=== PATIENT | male | born 1995 | race Two or more races ===

== ENCOUNTER 2018-12-13 23:06 | Emergency (ER) | payer SELFPAY ==
[~2018-12-13] VITALS: Ht 172.7 cm; Wt 65.8 kg
[2018-12-13 23:22] VITALS: BP 109/65
[2018-12-13] MEDS ORDERED: AMOX875T PO (23:28)
[2018-12-13] MEDS ORDERED: IBUP800T19 PO (23:28)
[2018-12-13] MEDS ORDERED: KETOROLAC 60 MG/2 ML VIAL. IM ONE (23:45)
--- NOTE | 2018-12-13 23:47 | PHYS DOC ---
Past History Past Medical History: Other Additional Past Medical Histor: HYPOKALEMIA, "I HAVE SOME KIND OF HEART PROBLEM" Past Surgical History: No Surgical History Alcohol Use: None Drug Use: None Adult General Chief Complaint Chief Complaint: DENTAL PROBLEM HPI HPI Patient is a 23-year-old male presenting with toothache the wisdom tooth is coming in impacting the other tooth left lower molar area onset 6 months ago worse today is planning to see a dentist as soon as possible no fever Review of Systems Review of Systems Constitutional: Denies fever or chills [] Eyes: Denies change in visual acuity, redness, or eye pain [] HENT: Denies nasal congestion or sore throat [] Resp Current Medications Current Medications Current Medications Medications (Trade) Dose Ordered Sig/Mateus Start Time Stop Time Status Last Admin Dose Admin Ketorolac Tromethamine (Toradol Im) 60 mg 1X ONCE 12/13/18 23:45 12/13/18 23:46 12/13/18 23:30 60 MG Allergies Allergies Allergies Coded Allergies Type Severity Reaction Last Updated Verified No Known Drug Allergies 12/13/18 No Physical Exam Physical Exam Constitutional: Well developed, well nourished, no acute distress, non-toxic appearance. [] HENT: Normocephalic, atraumatic, bilateral external ears normal, oropharynx im pacted wisdom tooth left lower molar area with no signs of fluctuance or facial swelling Eyes: PERRLA, EOMI, conjunctiva normal, no discharge. [] Pulmonary: Normal respiratory effort no increased work of breathing no obvious chest wall trauma Abdomen: Bowel sounds normal, soft, no tenderness, no masses, no pulsatile kenan s. [] Skin: Warm, dry, no erythema, no rash. [] Extremities: No tenderness, no cyanosis, no clubbing, ROM intact, no edema. [] Neurologic: Alert and oriented X 3, normal motor function, normal sensory function, no focal deficits noted. [] Psychologic: Affect normal, judgement normal, mood normal. [] Current Patient Data Vital Signs Vital Signs Date Time Temp Pulse Resp B/P (MAP) Pulse Ox O2 Delivery O2 Flow Rate FiO2 12/13/18 23:22 98.5 70 18 98 Room Air EKG EKG [] Radiology/Procedures Radiology/Procedures [] Course & Med Decision Making Course & Med Decision Making Pertinent Labs and Imaging studies reviewed. (See chart for details) 23-year-old male with some tooth pain amoxicillin was given case of subclinical infection as well as anti-inflammatory medication follow-up with dentist as soon as possible Christina Disclaimer Christina Disclaimer This electronic medical record was generated, in whole or in part, using a voice recognition dictation system. Departure Departure: Impression: Primary Impression: Toothache Disposition: HOME, SELF-CARE Condition: STABLE Patient Instructions: Toothache-Brief Scripts Amoxicillin (AMOXICILLIN) 875 Mg Tablet 1 TAB PO BID for TOOTH, #14 TAB Prov: BRET BANDA MD 12/13/18 Ibuprofen (IBUPROFEN) 800 Mg Tablet 1 TAB PO TID PRN for PAIN, #30 TAB 0 Refills Prov: BRET BANDA MD 12/13/18 BRET BANDA MD Dec 13, 2018 23:47
[2018-12-14] MEDS ORDERED: PRED50TA PO (02:28)
[2018-12-14] MEDS ORDERED: HYDR-3165 PO (02:28)
== END 2018-12-13 23:40 | disposition home or self-care (01) ==
LOC: ER 23:06
DX: K08.89 Other specified disorders of teeth and supporting structures (principal)
CPT/HCPCS: 96372; 99283; J1885

== ENCOUNTER 2018-12-14 01:30 | Emergency (ER) | payer SELFPAY ==
[~2018-12-14] VITALS: Ht 172.7 cm; Wt 65.8 kg
[~2018-12-14 01:30] MED LIST: AMOX875T PO; IBUP800T19 PO
[2018-12-14] MEDS ORDERED: diphenhydrAMINE HCL 25 MG CAPSULE PO ONE (02:00)
[2018-12-14] MEDS ORDERED: predniSONE 10 MG TABLET PO ONE (02:00)
--- NOTE | 2018-12-14 02:06 | PHYS DOC ---
Past History Past Medical History: Other Additional Past Medical Histor: HYPOKALEMIA, "I HAVE SOME KIND OF HEART PROBLEM" Past Surgical History: No Surgical History Alcohol Use: None Drug Use: None Adult General Chief Complaint Chief Complaint: SHORTNESS OF BREATH HPI HPI Patient is a 23-year-old male just saw him a couple hours ago in the emergency room received Toradol for dental pain. Cut home began to feel short of breath felt like he really couldn't get enough air for like his heart was pounding so came back to the emergency room for evaluation no prior history of allergic disease no vomiting Review of Systems Review of Systems Constitutional: Denies fever or chills [] Eyes: Denies change in visual acuity, redness, or eye pain [] HENT: Respiratory: GI: Denies abdominal pain, nausea, vomiting, bloody stools or diarrhea [] : Denies dysuria or hematuria [] Neurologic: Denies headache, focal weakness or sensory changes [] Endocrine: Denies polyuria or polydipsia [] All other systems were reviewed and found to be within normal limits, except as documented in this note. Current Medications Current Medications Current Medications Medications (Trade) Dose Ordered Sig/Mateus Start Time Stop Time Status Last Admin Dose Admin Diphenhydramine HCl (Benadryl) 50 mg 1X ONCE 12/14/18 02:00 12/14/18 02:01 DC 12/14/18 01:47 50 MG Prednisone (Prednisone) 50 mg 1X ONCE 12/14/18 02:00 12/14/18 02:01 DC 12/14/18 01:47 50 MG Allergies Allergies Allergies Coded Allergies Type Severity Reaction Last Updated Verified No Known Drug Allergies 12/13/18 No Physical Exam Physical Exam Constitutional: Well developed, well nourished, no acute distress, non-toxic appearance. [] HENT: Normocephalic, atraumatic, bilateral external ears normal, oropharynx moist, no oral exudates, nose normal. [] Eyes: PERRLA, EOMI, conjunctiva normal, no discharge. [] Neck: Normal range of motion, no tenderness, supple, no stridor. [] Cardiovascular:Heart rate regular rhythm, no murmur []tachycardia but otherwise no murmurs Lungs & Thorax: Bilateral breath sounds clear to auscultation []mild tachypnea but lungs sound essentially clear the oropharynx is normal there is no swelling no stigmata of allergic reaction no urticaria Abdomen: Bowel sounds normal, soft, no tenderness, no masses, no pulsatile masses. [] Skin: Warm, dry, no erythema, no rash. [] Back: No tenderness, no CVA tenderness. [] Extremities: No tenderness, no cyanosis, no clubbing, ROM intact, no edema. [] Neurologic: Alert and oriented X 3, normal motor function, normal sensory function, no focal deficits noted. [] Psychologic: Affect normal, judgement normal, mood normal. [] Current Patient Data Vital Signs Vital Signs Date Time Temp Pulse Resp B/P (MAP) Pulse Ox O2 Delivery O2 Flow Rate FiO2 12/14/18 01:38 98.0 96 20 98 Room Air EKG EKG [] Radiology/Procedures Radiology/Procedures [] Impressions: PT PRESENTS TO ER VIA POV WITH C/O SOA AFTER RECEIVING TORADOL INJECTION EARLIER THIS EVENING. PT WAS SEEN EARLIER THIS EVENING AT [facility] ER FOR DENTAL PAIN AND RECEIVED A TORADOL INJECTION FOR PAIN. UPON DISCHARGE, PT HAD NO COMPLAINTS OF REACTION. PT RETURNED 2 HOURS AFTER INJECTION C/O SOA. Distress * Mild Temperature (Fahrenheit): * 98.0 degrees F (97.6-99.5) Patient Temperature * 98.0 degrees F (97.5-99.5) Temperature Source * Oral Blood Pressure Systolic * 110 mm Hg (100-140) Blood Pressure Diastolic * 59 mm Hg (60-100) L Blood Pressure Mean * 76 mm Hg Blood Pressure Location * Right Arm Blood Pressure Source * Automatic Cuff Pulse Rate * 96 beats per minute (60-90) H Pulse Assessment Method * Monitor Respiratory Rate * 20 breaths per minute (12-24) Oxygen Delivery Method * Room Air Course & Med Decision Making Course & Med Decision Making Pertinent Labs and Imaging studies reviewed. (See chart for details) []Patient may have had a mild to moderate allergic reaction to Toradol no signs of any swelling or hives however subjective shortness of breath with some mild tachycardia and anxiety is also possible chest x-ray clear after Benadryl and prednisone. Of observation the tachycardia resolved completely patient was breathing comfortably blood pressure noted to be normal in the emergency room patient was given prescription for prednisone and advised to not take Motrin may have allergy to Toradol given [place] as needed for pain for his tooth. Dragon Disclaimer Dragon Disclaimer This electronic medical record was generated, in whole or in part, using a voice recognition dictation system. Departure Departure: Impression: Primary Impression: Allergic reaction Disposition: 01 HOME, SELF-CARE Condition: STABLE Referrals: PCP,BLANCA (PCP) Scripts Prednisone (PREDNISONE) 50 Mg Tablet 1 TAB PO DAILY for allergic reaction, #5 TAB Prov: BRET BANDA MD 12/14/18 Hydrocodone Bit/Acetaminophen (NORCO 5-325 TABLET) 1 Each Tablet 1-2 TAB PO Q4-6HRS PRN for PAIN, #10 TAB Prov: BRET BANDA MD 12/14/18 BRET BANDA MD Dec 14, 2018 02:06
[2018-12-14] MEDS ORDERED: PRED50TA PO (02:28)
[2018-12-14] MEDS ORDERED: HYDR-3165 PO (02:28)
[2018-12-14 02:30] VITALS: BP 102/46
--- NOTE | 2018-12-14 03:03 | RAD ---
EXAM: CHEST 1 VIEW History: Shortness of breath COMPARISON: None available. TECHNIQUE: Single portable radiograph of the chest FINDINGS: The cardiac silhouette is unremarkable. The lungs are clear bilaterally. The costophrenic sulci are clear and well demarcated. IMPRESSION: No radiographic evidence of an acute cardiopulmonary process. Electronically signed by: Ramon Montoya MD (12/14/2018 3:00 AM) [facility]
== END 2018-12-14 02:35 | disposition home or self-care (01) ==
LOC: ER 01:30
DX: R06.02 Shortness of breath (principal); T39.8X5A Adverse effect of other nonopioid analgesics and antipyretics, not elsewhere classified, initial encounter; Y92.89 Other specified places as the place of occurrence of the external cause
CPT/HCPCS: 71045; 99283; J7512; Q0163

== ENCOUNTER 2018-12-14 23:58 | Emergency (ER) | payer SELFPAY ==
[~2018-12-14] VITALS: Ht 172.7 cm; Wt 65.8 kg
[~2018-12-14 23:58] MED LIST changes: +HYDR-3165 PO; +PRED50TA PO
[2018-12-15 00:30] VITALS: BP 106/69
[2018-12-15] MEDS ORDERED: HYDROcodone/APAP 5/325MG 1 TAB TABLET PO ONE (00:30)
[2018-12-15] MEDS ORDERED: AMOXICILLIN 250 MG CAPSULE PO ONE (00:30)
--- NOTE | 2018-12-15 00:48 | PHYS DOC ---
Past History Past Medical History: Other Additional Past Medical Histor: HYPOKALEMIA, "I HAVE SOME KIND OF HEART PROBLEM" Past Surgical History: No Surgical History Alcohol Use: None Drug Use: Marijuana Adult General Chief Complaint Chief Complaint: DENTAL PROBLEM HPI HPI Patient is a [23-year-old male with an impacted wisdom tooth left lower molar some twice last night given Toradol he came back with shortness of breath and mild tachycardia allergic reaction was on the differential but he had no urticaria we treated him he was improved he was sent home he said that the medications that he was prescribed last night amoxicillin and pain control were too expensive so he has not filled any of the medications and he feels like his tooth is getting more swollen and more painful he is worried that his airways going to shut down. No fever Current Medications Current Medications Current Medications Medications (Trade) Dose Ordered Sig/Mateus Start Time Stop Time Status Last Admin Dose Admin Acetaminophen/ Hydrocodone Bitart (Lortab 5/325) 2 tab 1X ONCE 12/15/18 00:30 12/15/18 00:31 DC 12/15/18 00:22 2 TAB Amoxicillin (Amoxil) 500 mg 1X ONCE 12/15/18 00:30 12/15/18 00:31 DC 12/15/18 00:22 500 MG Allergies Allergies Allergies Coded Allergies Type Severity Reaction Last Updated Verified ketorolac Allergy Intermediate 12/14/18 Yes Physical Exam Physical Exam Constitutional: Well developed, well nourished, no acute distress, non-toxic appearance. [] HENT: Normocephalic, atraumatic, bilateral external ears normal, left lower molar impacted wisdom tooth noted there is mild swelling around the gum no appreciable drainable abscess at this time no facial swelling there is trace lymphadenopathy on the left no sublingual swelling Eyes: PERRLA, EOMI, conjunctiva normal, no discharge. [] Neck: Normal range of motion, no tenderness, supple, no stridor. [] Cardiovascular:Heart rate regular rhythm, no murmur [] Lungs & Thorax: Bilateral breath sounds clear to auscultation [] Abdomen: Bowel sounds normal, soft, no tenderness, no masses, no pulsatile masses. [] Skin: Warm, dry, no erythema, no rash. [] Extremities: No tenderness, no cyanosis, no clubbing, ROM intact, no edema. [] Neurologic: Alert and oriented X 3, normal motor function, normal sensory function, no focal deficits noted. [] Psychologic: Anxiety noted Current Patient Data Vital Signs Vital Signs Date Time Temp Pulse Resp B/P (MAP) Pulse Ox O2 Delivery O2 Flow Rate FiO2 12/15/18 00:30 97.9 83 18 97 Room Air Lab Results ss * None Temperature (Fahrenheit): * 97.9 degrees F (97.6-99.5) Patient Temperature * 97.9 degrees F (97.5-99.5) Temperature Source * Oral Blood Pressure Systolic * 106 mm Hg (100-140) Blood Pressure Diastolic * 69 mm Hg (60-100) Blood Pressure Mean * 81 mm Hg Blood Pressure Location * Right Arm Blood Pressure Source * Automatic Cuff Pulse Rate * 83 beats per minute (60-90) Pulse Assessment Method * Monitor Respiratory Rate * 18 breaths per minute (12-24) Oxygen Delivery Method * Room Air Bedside Pulse Oximetry * 97 % EKG EKG [] Radiology/Procedures Radiology/Procedures [] Course & Med Decision Making Course & Med Decision Making Pertinent Labs and Imaging studies reviewed. (See chart for details) []I gave him a good Rx coupon I spoke with one of our staff members were actually works at a local pharmacy and counseled him on were to go to get the most affordable medications I recommended that he take the amoxicillin for sure and that should be pretty cheap also feel even half the prescription for [place] to give him some pain relief he does not have to take the prednisone probably there are no stigmata of allergic reaction tonight on my reevaluation of the patient. Recommended follow-up with dentist this week as soon as possible Christina Disclaimer Dragon Disclaimer This electronic medical record was generated, in whole or in part, using a voice recognition dictation system. Departure Departure: Impression: Primary Impression: Pain, dental Disposition: HOME, SELF-CARE Condition: STABLE Patient Instructions: Toothache-Brief BRET BANDA MD Dec 15, 2018 00:48
== END 2018-12-15 00:20 | disposition home or self-care (01) ==
LOC: ER 23:58
DX: K08.89 Other specified disorders of teeth and supporting structures (principal); Z88.8 Allergy status to other drugs, medicaments and biological substances
CPT/HCPCS: 99283

== ENCOUNTER 2018-12-29 05:46 | Emergency (ER) | payer SELFPAY ==
[~2018-12-29] VITALS: Ht 172.7 cm; Wt 66.5 kg
--- NOTE | 2018-12-29 05:49 | ED.ADGEN ---
Past History Past Medical History: Other Additional Past Medical Histor: HYPOKALEMIA, "I HAVE SOME KIND OF HEART PROBLEM" (JUSTA SIM MD) Past Surgical History: No Surgical History (JUSTA SIM MD) Alcohol Use: None Drug Use: Marijuana (JUSTA SIM MD) Adult General HPI HPI Patient is a 23 year old male who presents with above hx and complaints of pharyngitis. (JUSTA SIM MD) Review of Systems Review of Systems Constitutional: Denies fever or chills [] Eyes: Denies change in visual acuity, redness, or eye pain [] HENT: Denies nasal congestion or sore throat [] Respiratory: Denies cough or shortness of breath [] Cardiovascular: No additional information not addressed in HPI [] GI: Denies abdominal pain, nausea, vomiting, bloody stools or diarrhea [] : Denies dysuria or hematuria [] Musculoskeletal: Denies back pain or joint pain [] Integument: Denies rash or skin lesions [] Neurologic: Denies headache, focal weakness or sensory changes [] Endocrine: Denies polyuria or polydipsia [] All other systems were reviewed and found to be within normal limits, except as documented in this note. (JUSTA SIM MD) Current Medications Current Medications Current Medications Medications (Trade) Dose Ordered Sig/Mateus Start Time Stop Time Status Last Admin Dose Admin Acetaminophen (Tylenol) 500 mg 1X ONCE 12/29/18 07:00 12/29/18 07:01 DC 12/29/18 06:37 500 MG Dexamethasone (Decadron) 10 mg 1X ONCE 12/29/18 06:45 12/29/18 06:46 DC 12/29/18 06:31 10 MG Prednisone (Prednisone) 50 mg 1X ONCE 12/29/18 06:15 12/29/18 06:15 DC (MELISSA BAH DO) Allergies Allergies Allergies Coded Allergies Type Severity Reaction Last Updated Verified ketorolac Allergy Intermediate 12/29/18 Yes (MELISSA BAH DO) Physical Exam Physical Exam Constitutional: Well developed, well nourished, no acute distress, non-toxic appearance. [] HENT: Normocephalic, atraumatic, bilateral external ears normal, oropharynx moist, no oral exudates, nose normal. [] Eyes: PERRLA, EOMI, conjunctiva normal, no discharge. [] Neck: Normal range of motion, no tenderness, supple, no stridor. [] Cardiovascular:Heart rate regular rhythm, no murmur [] Lungs & Thorax: Bilateral breath sounds clear to auscultation [] Abdomen: Bowel sounds normal, soft, no tenderness, no masses, no pulsatile masses. [] Skin: Warm, dry, no erythema, no rash. [] Back: No tenderness, no CVA tenderness. [] Extremities: No tenderness, no cyanosis, no clubbing, ROM intact, no edema. [] Neurologic: Alert and oriented X 3, normal motor function, normal sensory function, no focal deficits noted. [] Psychologic: Affect normal, judgement normal, mood normal. [] (JUSTA SIM MD) Current Patient Data Vital Signs Vital Signs Date Time Temp Pulse Resp B/P (MAP) Pulse Ox O2 Delivery O2 Flow Rate FiO2 12/29/18 05:50 97.9 90 20 107/49 (68) 98 Room Air (MELISSA BAH DO) Lab Results Laboratory Tests Test 12/29/18 06:38 Group A Streptococcus Rapid Negative (NEGATIVE) (MELISSA BAH DO) EKG EKG [] (JUSTA SIM MD) Radiology/Procedures Radiology/Procedures [] (JUSTA SIM MD) Course & Med Decision Making Course & Med Decision Making Pertinent Labs and Imaging studies reviewed. (See chart for details) [] (JUSTA SIM MD) Final Impression Final Impression [] (JUSTA SIM MD) Dragon Disclaimer Dragon Disclaimer This electronic medical record was generated, in whole or in part, using a voice recognition dictation system. (JUSTA SIM MD) JUSTA SIM MD Dec 29, 2018 05:49 MELISSA BAH DO Dec 29, 2018 07:05
[2018-12-29 06:00] VITALS: BP 107/49
[2018-12-29] MEDS ORDERED: predniSONE 10 MG TABLET PO ONE (06:15)
[2018-12-29] MEDS ORDERED: DEXAMETHASONE 4 MG TABLET PO ONE (06:45)
[2018-12-29] MEDS ORDERED: ACETAMINOPHEN 500 MG TABLET PO ONE (07:00)
[2018-12-29] MEDS ORDERED: PRED20TA PO (07:07)
--- NOTE | 2018-12-29 07:10 | PHYS DOC ---
Past History Past Medical History: Other Additional Past Medical Histor: HYPOKALEMIA, "I HAVE SOME KIND OF HEART PROBLEM" Past Surgical History: No Surgical History Smoking: Non-smoker Alcohol Use: None Drug Use: Marijuana Adult General Chief Complaint Chief Complaint: SORE THROAT HPI HPI 23-year-old male presents with 2 day history of sore throat. Reports pain with swallowing. Denies fever or chills. Denies known trauma. Patient reports daughter with URI type symptoms including fever. Review of Systems Review of Systems Constitutional: Denies fever or chills Eyes: Denies redness or eye pain HENT: Denies nasal congestion; reports sore throat Respiratory: Denies cough or shortness of breath Cardiovascular: Denies chest pain or palpitations GI: Denies abdominal pain, nausea, or vomiting : Denies dysuria or hematuria Musculoskeletal: Denies back pain or joint pain Integument: Denies rash or skin lesions Neurologic: Denies headache, focal weakness or sensory changes Complete systems were reviewed and found to be within normal limits, except as documented in this note. Current Medications Current Medications Current Medications Medications (Trade) Dose Ordered Sig/Mateus Start Time Stop Time Status Last Admin Dose Admin Acetaminophen (Tylenol) 500 mg 1X ONCE 12/29/18 07:00 12/29/18 07:01 DC 12/29/18 06:37 500 MG Dexamethasone (Decadron) 10 mg 1X ONCE 12/29/18 06:45 12/29/18 06:46 DC 12/29/18 06:31 10 MG Prednisone (Prednisone) 50 mg 1X ONCE 12/29/18 06:15 12/29/18 06:15 DC Allergies Allergies Allergies Coded Allergies Type Severity Reaction Last Updated Verified ketorolac Allergy Intermediate 12/29/18 Yes Physical Exam Physical Exam Constitutional: Well developed, well nourished, no acute distress, non-toxic appearance HENT: Normocephalic, atraumatic, oropharynx moist, pharyngeal erythema noted, TMs clear Eyes: Conjunctiva normal, no discharge Neck: Normal range of motion, no tenderness, supple Cardiovascular: Heart rate normal, regular rhythm Lungs & Thorax: Bilateral breath sounds clear to auscultation, no wheezing Skin: Warm, dry, no erythema, no rash Extremities: No tenderness, ROM intact, no edema Neurologic: Alert and oriented X 3, no focal deficits noted Psychologic: Affect normal, judgement normal Current Patient Data Vital Signs Vital Signs Date Time Temp Pulse Resp B/P (MAP) Pulse Ox O2 Delivery O2 Flow Rate FiO2 12/29/18 05:50 97.9 90 20 107/49 (68) 98 Room Air Lab Results Laboratory Tests Test 12/29/18 06:38 Group A Streptococcus Rapid Negative (NEGATIVE) EKG EKG [] Radiology/Procedures Radiology/Procedures [] Course & Med Decision Making Course & Med Decision Making Pertinent Lab studies reviewed. (See chart for details) She presents with 2 day history of sore throat. Mild erythema noted. Symptomatic treatment provided with oral steroid and Tylenol. Rapid strep negative. Rapid influenza negative. Patient stable for discharge with outpatient follow-up with PCP. Discussed findings and plan with patient and family, who acknowledge understanding and agreement. Dragon Disclaimer Dragon Disclaimer This electronic medical record was generated, in whole or in part, using a voice recognition dictation system. Departure Departure: Impression: Primary Impression: Pharyngitis Disposition: HOME, SELF-CARE Condition: STABLE Referrals: OLIVER FORD MD (PCP) Patient Instructions: Viral and Bacterial Pharyngitis, [id number] Additional Instructions: Use over the counter Ibuprofen and Tylenol for pain or discomfort. May also use over the counter remedies (throat lozenge). Scripts Prednisone (PREDNISONE) 20 Mg Tablet 2 TAB PO DAILY for pharyngitis, #8 TAB Start this prescription tomorrow, Sunday12/30/18 Prov: MELISSA BAH DO 12/29/18 Problem Qualifiers Primary Impression: Pharyngitis Pharyngitis/tonsillitis etiology: unspecified etiology Qualified Codes: J02.9 - Acute pharyngitis, unspecified MELISSA BAH DO Dec 29, 2018 07:10
[2018-12-29 07:25] LABS: INFLUENZA A PATIENT NEGATIVE (NEGATIVE); INFLUENZA B PATIENT NEGATIVE (NEGATIVE)
== END 2018-12-29 07:31 | disposition home or self-care (01) ==
LOC: ER 05:46
DX: J02.9 Acute pharyngitis, unspecified (principal); Z88.8 Allergy status to other drugs, medicaments and biological substances
CPT/HCPCS: 87070; 87804; 87880; 99284; J8540

== ENCOUNTER 2019-01-17 08:11 | Emergency (ER) | payer SELFPAY ==
[~2019-01-17 08:11] MED LIST changes: +PRED20TA PO
[2019-01-17 08:32] VITALS: BP 123/62
[2019-01-17] MEDS ORDERED: ONDANSETRON ODT 4 MG TAB.RAPDIS PO ONE (08:45)
[2019-01-17] MEDS ORDERED: FAMOTIDINE 20 MG TABLET PO ONE (08:45)
--- NOTE | 2019-01-17 09:05 | ED.ADGEN ---
Past History Past Medical History: No Pertinent History Additional Past Medical Histor: HYPOKALEMIA, "I HAVE SOME KIND OF HEART PROBLEM" Past Surgical History: No Surgical History Smoking: Non-smoker Alcohol Use: None Drug Use: None Adult General Chief Complaint Chief Complaint Right sided chest pain HPI HPI Patient is a 23-year-old male who presents with intermittent right parasternal chest pain and mild dyspnea secondary to pain for the past 2 months. Patient states pain is sharp, nonradiating worse with palpation and movement. Patient han s had similar episodes over the past 18 months and states he was admitted to [facility] for the and winter of 2017. Patient states he had testing performed and does not recall his diagnosis. He prescribed medications which she has not taken it is not currently on. Does not have health insurance has not follow-up with a provider since his hospitalization. Patient states chest pain is worse with eating and drinking spicy foods. Reports one episode of vomiting yesterday described as bilious. He also reports upper abdominal pain over the past week but states that other family members have been sick with a stomach flu. Abdominal pain and nausea currently M improved. His cough, sore throat, fever chills, sweats, wheezing. No other acute symptoms[] Review of Systems Review of Systems Review symptoms as per history of present illness. All other review symptoms are negative. All other systems were reviewed and found to be within normal limits, except as documented in this note. Current Medications Current Medications Current Medications Medications (Trade) Dose Ordered Sig/Mateus Start Time Stop Time Status Last Admin Dose Admin Famotidine (Pepcid) 20 mg 1X ONCE 01/17/19 08:45 01/17/19 08:46 DC 01/17/19 08:45 20 MG Ondansetron HCl (Zofran Odt) 4 mg 1X ONCE 01/17/19 08:45 01/17/19 08:46 DC 01/17/19 08:45 4 MG Allergies Allergies Allergies Coded Allergies Type Severity Reaction Last Updated Verified ketorolac Allergy Intermediate 12/29/18 Yes Physical Exam Physical Exam Constitutional: Well developed, well nourished, no acute distress, non-toxic appearance. [] HENT: Normocephalic, atraumatic, bilateral external ears normal, oropharynx moist, no oral exudates, nose normal. [] Eyes: PERRLA, EOMI, conjunctiva normal, no discharge. [] Neck: Normal range of motion, no tenderness, supple, no stridor. [] Cardiovascular:Heart rate regular rhythm, I parasternal pain/tenderness to palpation.[] Lungs & Thorax: Bilateral breath sounds clear to auscultation [] Abdomen: Bowel sounds normal, soft, no tenderness, no masses, no pulsatile masses. [] Skin: Warm, dry, no erythema, no rash. [] Back: No tenderness, no CVA tenderness. [] Extremities: No tenderness, no cyanosis, no clubbing, ROM intact, no edema. [] Neurologic: Alert and oriented X 3, normal motor function, normal sensory function, no focal deficits noted. [] Psychologic: Affect normal, judgement normal, mood normal. [] Current Patient Data Vital Signs Vital Signs Date Time Temp Pulse Resp B/P (MAP) Pulse Ox O2 Delivery O2 Flow Rate FiO2 01/17/19 08:32 97.4 71 18 97 Room Air Lab Results Laboratory Tests Test 01/17/19 09:00 White Blood Count 6.3 x10^3/uL (4.0-11.0) Red Blood Count 4.50 x10^6/uL (4.30-5.70) Hemoglobin 14.2 g/dL (13.0-17.5) Hematocrit 42.5 % (39.0-53.0) Mean Corpuscular Volume 95 fL (79-100) Mean Corpuscular Hemoglobin 32 pg (25-35) Mean Corpuscular Hemoglobin Concent 33 g/dL (31-37) Red Cell Distribution Width 12.6 % (11.5-14.5) Platelet Count 279 x10^3/uL (140-400) Neutrophils (%) (Auto) 55 % (31-73) Lymphocytes (%) (Auto) 33 % (24-48) Monocytes (%) (Auto) 8 % (0-9) Eosinophils (%) (Auto) 3 % (0-3) Basophils (%) (Auto) 1 % (0-3) Neutrophils # (Auto) 3.4 x10^3uL (1.8-7.7) Lymphocytes # (Auto) 2.1 x10^3/uL (1.0-4.8) Monocytes # (Auto) 0.5 x10^3/uL (0.0-1.1) Eosinophils # (Auto) 0.2 x10^3/uL (0.0-0.7) Basophils # (Auto) 0.1 x10^3/uL (0.0-0.2) D-Dimer (Miracle) < 0.19 mg/L (0.00-0.50) Sodium Level 141 mmol/L (136-145) Potassium Level 4.4 mmol/L (3.5-5.1) Chloride Level 104 mmol/L (98-107) Carbon Dioxide Level 28 mmol/L (21-32) Anion Gap 9 (6-14) Blood Urea Nitrogen 8 mg/dL (8-26) Creatinine 0.9 mg/dL (0.7-1.3) Estimated GFR (Cockcroft-Gault) 105.5 BUN/Creatinine Ratio 9 (6-20) Glucose Level 100 mg/dL (70-99) H Calcium Level 9.1 mg/dL (8.5-10.1) Total Bilirubin 1.0 mg/dL (0.2-1.0) Aspartate Amino Transferase (AST) 25 U/L (15-37) Alanine Aminotransferase (ALT) 48 U/L (16-63) Alkaline Phosphatase 63 U/L (46-116) Troponin I Quantitative < 0.017 ng/mL (0-0.055) Total Protein 7.6 g/dL (6.4-8.2) Albumin 4.1 g/dL (3.4-5.0) Albumin/Globulin Ratio 1.2 (1.0-1.7) Lipase 285 U/L (73-393) EKG EKG [EKG: Normal sinus rhythm, no acute ST-T wave changes.] Radiology/Procedures Radiology/Procedures [Chest x-ray: No acute cardiopulmonary disease.] Course & Med Decision Making Course & Med Decision Making Pertinent Labs and Imaging studies reviewed. (See chart for details) [Right parasternal chest pain. EKG, lab and imaging's unremarkable. Recommend perales pportive care with PCP follow-up] Final Impression Final Impression [] Dragon Disclaimer Dragon Disclaimer This electronic medical record was generated, in whole or in part, using a voice recognition dictation system. LUCIANO CHOUDHURY DO Jan 17, 2019 09:05
[2019-01-17 09:18] LABS: BASO # 0.1 x10^3/uL (0.0-0.2); BASO % 1 % (0-3); EOS # 0.2 x10^3/uL (0.0-0.7); EOS % 3 % (0-3); HEMATOCRIT 42.5 % (39.0-53.0); HEMOGLOBIN 14.2 g/dL (13.0-17.5); LYMPH # 2.1 x10^3/uL (1.0-4.8); LYMPH % 33 % (24-48); MEAN CORPUSCULAR HEMOGLOBIN 32 pg (25-35); MEAN CORPUSCULAR HGB CONC 33 g/dL (31-37); MEAN CORPUSCULAR VOLUME 95 fL (79-100); MONO # 0.5 x10^3/uL (0.0-1.1); MONO % 8 % (0-9); NEUT # 3.4 x10^3uL (1.8-7.7); NEUT % 55 % (31-73); PLATELET COUNT 279 x10^3/uL (140-400); RED CELL DISTRIBUTION WIDTH 12.6 % (11.5-14.5); WHITE BLOOD COUNT 6.3 x10^3/uL (4.0-11.0)
--- NOTE | 2019-01-17 09:33 | RAD ---
CHEST AP ONLY Clinical Indication: Chest pain Comparison: AP chest December 14, 2018. Findings: The cardiomediastinal silhouette is normal. Lungs are clear. There is no pneumothorax. No pleural effusion is appreciated. No acute bone abnormality. IMPRESSION: No acute cardiopulmonary process. Electronically signed by: Silvino Dennis MD (01/17/2019 9:30 AM) [id number]
[2019-01-17 09:34] LABS: ALBUMIN 4.1 g/dL (3.4-5.0); ALBUMIN/GLOBULIN RATIO 1.2 (1.0-1.7); CALCIUM 9.1 mg/dL (8.5-10.1); CREATININE 0.9 mg/dL (0.7-1.3); GFR 105.5; POTASSIUM 4.4 mmol/L (3.5-5.1); TOTAL PROTEIN 7.6 g/dL (6.4-8.2)
== END 2019-01-17 10:06 | disposition home or self-care (01) ==
LOC: ER 08:11
DX: R07.2 Precordial pain (principal); R11.2 Nausea with vomiting, unspecified; R10.10 Upper abdominal pain, unspecified; Z88.8 Allergy status to other drugs, medicaments and biological substances
CPT/HCPCS: 36415; 71045; 80053; 83690; 84484; 85025; 85379; 93005; 99285; Q0162

== ENCOUNTER 2019-02-07 23:35 | Emergency (ER) | payer SELFPAY ==
[~2019-02-07] VITALS: Ht 172.7 cm; Wt 65.8 kg
[2019-02-07 23:51] VITALS: BP 112/63
--- NOTE | 2019-02-08 00:16 | PHYS DOC ---
Past History Past Medical History: No Pertinent History Additional Past Medical Histor: HYPOKALEMIA, "I HAVE SOME KIND OF HEART PROBLEM" Past Surgical History: No Surgical History Smoking: Non-smoker Alcohol Use: None Drug Use: None Adult General Chief Complaint Chief Complaint: BACK PAIN OR INJURY [facility] HPI 24-year-old male presents with lower back pain. The patient tells me that he has been having intermittent low back pain for last couple of years. 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 It is worse on the right side than the left. He denies injury or falls. He denies numbness, tingling, altered sensation. No history of back surgery. Denies fever, chills, dysuria, urinary frequency. Review of Systems Review of Systems Constitutional: Denies fever or chills [] Eyes: Denies change in visual acuity, redness, or eye pain [] HENT: Denies nasal congestion or sore throat [] Respiratory: Denies cough or shortness of breath [] Cardiovascular: No additional information not addressed in HPI [] GI: Denies abdominal pain, nausea, vomiting, bloody stools or diarrhea [] : Denies dysuria or hematuria [] Musculoskeletal: Right-sided low back pain[] Integument: Denies rash or skin lesions [] Neurologic: Denies headache, focal weakness or sensory changes [] Endocrine: Denies polyuria or polydipsia [] All other systems were reviewed and found to be within normal limits, except as documented in this note. Allergies Allergies Allergies Coded Allergies Type Severity Reaction Last Updated Verified ketorolac Allergy Intermediate 12/29/18 Yes Physical Exam Physical Exam Constitutional: Well developed, well nourished, no acute distress, non-toxic appearance. [] HENT: Normocephalic, atraumatic, bilateral external ears normal, oropharynx moist, no oral exudates, nose normal. [] Eyes: PERRLA, EOMI, conjunctiva normal, no discharge. [] Neck: Normal range of motion, no tenderness, supple, no stridor. [] Cardiovascular:Heart rate regular rhythm, no murmur [] Lungs & Thorax: Bilateral breath sounds clear to auscultation [] Abdomen: Bowel sounds normal, soft, no tenderness, no masses, no pulsatile kenan s. [] Skin: Warm, dry, no erythema, no rash. [] Back: Tenderness over the right sacroiliac joint. Left facing, anterior sacrum.[] Extremities: No tenderness, no cyanosis, no clubbing, ROM intact, no edema. [] Neurologic: Alert and oriented X 3, normal motor function, normal sensory function, no focal deficits noted. [] Psychologic: Affect normal, judgement normal, mood normal. [] Current Patient Data Vital Signs Vital Signs Date Time Temp Pulse Resp B/P (MAP) Pulse Ox O2 Delivery O2 Flow Rate FiO2 02/07/19 23:51 98.4 92 18 97 Room Air EKG EKG [] Radiology/Procedures Radiology/Procedures [] Course & Med Decision Making Course & Med Decision Making Pertinent Labs and Imaging studies reviewed. (See chart for details) Patient has right sacroiliitis. He is medically stable. He does not require further medical evaluation or workup. I have advised supportive care. He is stable for discharge at this time. [] Dragon Disclaimer Dragon Disclaimer This electronic medical record was generated, in whole or in part, using a voice recognition dictation system. Departure Departure: Impression: Primary Impression: Encounter for medical screening examination Disposition: HOME, SELF-CARE Condition: STABLE Referrals: PCP,BLANCA (PCP) Patient Instructions: Sacroiliac Joint Dysfunction LUCIANO AYALA DO Feb 08, 2019 00:16
== END 2019-02-08 00:22 | disposition home or self-care (01) ==
LOC: ER 23:35
DX: Z00.8 Encounter for other general examination (principal); M54.5 Low back pain; M53.3 Sacrococcygeal disorders, not elsewhere classified; Z88.8 Allergy status to other drugs, medicaments and biological substances
CPT/HCPCS: 99281

== ENCOUNTER 2019-07-10 01:43 | Emergency (ER) | payer SELFPAY ==
[~2019-07-10] VITALS: Ht 172.7 cm; Wt 66.5 kg
[2019-07-10 01:54] VITALS: BP 121/71
[2019-07-10] MEDS ORDERED: ATROPINE SULFATE 1 MG VIAL ONE (02:01)
[2019-07-10] MEDS ORDERED: LORA0.5T96 PO (02:05)
--- NOTE | 2019-07-10 02:07 | PHYS DOC ---
Past History Past Medical History: Anxiety, Asthma Additional Past Medical Histor: HYPOKALEMIA, "I HAVE SOME KIND OF HEART PROBLEM" Past Surgical History: No Surgical History Smoking: Non-smoker Alcohol Use: None Drug Use: None General Adult EDM: Chief Complaint: SHORTNESS OF BREATH HPI: HPI: 24-year-old male presents with sudden shortness of air and palpitations upon laying down to go to bed this evening. Patient reports he recently just got out of the [facility]. Patient does report history of anxiety. Denies cough. Denies fever or chills. Denies known triggering allergen. Patient denies any wheezing. Review of Systems: Review of Systems: Constitutional: Denies fever or chills Eyes: Denies redness or eye pain HENT: Denies nasal congestion or sore throat Respiratory: Reports shortness of air; denies wheezing Cardiovascular: Denies chest pain or palpitations GI: Denies abdominal pain, nausea, or vomiting : Denies dysuria or hematuria Musculoskeletal: Denies back pain or joint pain Integument: Denies rash or skin lesions Neurologic: Denies headache, focal weakness or sensory changes Complete systems were reviewed and found to be within normal limits, except as documented in this note. Allergies: Allergies: Allergies Coded Allergies Type Severity Reaction Last Updated Verified ketorolac Allergy Intermediate 12/29/18 Yes Physical Exam: PE: Constitutional: Well developed, well nourished, anxious, non-toxic appearance HENT: Normocephalic, atraumatic, oropharynx moist Eyes: Conjunctiva normal, no discharge Neck: Normal range of motion, no tenderness, supple Cardiovascular: Heart rate tachycardic, regular rhythm Lungs & Thorax: Bilateral breath sounds clear to auscultation, no wheezing Skin: Warm, dry, no erythema, no rash Extremities: No tenderness, ROM intact, no edema Neurologic: Alert and oriented X 3,, no focal deficits noted Psychologic: Affect anxious, judgment normal EKG: EKG: [] Radiology/Procedures: Radiology/Procedures: CXR 2 view (preliminary interpretation by ED physician): No acute process Course & Med Decision Making: Course & Med Decision Making Pertinent Imaging studies reviewed. (See chart for details) Patient presents with history of present illness and physical exam concerning for anxiety attack. No wheezing noted. O2 sats 99% on room air. Anxiety addressed. Chest x-ray obtained without acute process. Patient stable for discharge with outpatient follow-up with PCP. Discussed findings and plan with patient, who acknowledges understanding and agreement. Christina Disclaimer: Christina Disclaimer: This electronic medical record was generated, in whole or in part, using a voice recognition dictation system. Departure Departure: Impression: Primary Impression: Anxiety Disposition: HOME, SELF-CARE Condition: STABLE Referrals: PCP,NO (PCP) Patient Instructions: Anxiety and Panic Attacks, [id number] Scripts Lorazepam (ATIVAN) 0.5 Mg Tablet 0.5 MG PO Q8HRS PRN for ANXIETY, #10 TAB Prov: MELISSA BAH DO 07/10/19 MELISSA BAH DO Jul 10, 2019 02:07
--- NOTE | 2019-07-10 02:30 | RAD ---
PA and lateral chest x-ray COMPARISON: Chest x-ray January 17, 2019. HISTORY: Shortness of breath, throat tightness. FINDINGS: Heart size normal. Mediastinal silhouette is normal. No pneumothorax, pulmonary opacities or pleural effusions. Bones are unremarkable. IMPRESSION: No acute process. Electronically signed by: Colin Rojas MD (07/10/2019 2:27 AM) [id number]
== END 2019-07-10 02:22 | disposition home or self-care (01) ==
LOC: ER 01:43
DX: F41.9 Anxiety disorder, unspecified (principal); J45.909 Unspecified asthma, uncomplicated; Z88.8 Allergy status to other drugs, medicaments and biological substances
CPT/HCPCS: 71046; 96372; 99283; J2060

== ENCOUNTER 2020-08-18 09:11 | Emergency (ER) | payer SELFPAY ==
[~2020-08-18] VITALS: Ht 172.7 cm; Wt 62.0 kg
[~2020-08-18 09:11] MED LIST changes: +LORA0.5T21 PO
--- NOTE | 2020-08-18 09:43 | PHYS DOC ---
Past History Past Medical History: Anxiety, Asthma, Depression Additional Past Medical Histor: HYPOKALEMIA, "I HAVE SOME KIND OF HEART PROBLEM" Past Surgical History: No Surgical History Smoking: Non-smoker Alcohol Use: None Drug Use: None Adult General Chief Complaint Chief Complaint: ANXIETY/PANIC ATTACK HPI HPI Patient is a 25-year-old male here for anxiety/panic attack. This is a known issue for him. Has known/prior diagnoses of anxiety, depression and PTSD. States he had adequate outpatient medical coverage and mental health services for which he attended therapy and was on Zoloft. Nonetheless, patient reports not having insurance and losing all access to services and medications, he has been off all medications for past 2 years. States he has been depressed and more anxious, admits increased social stressors. Has had a history of suicidal ideation but reports having x2 daughters for which she is primary provider for and would "never do anything to jeopardize their future". States he was having a bad day, got into a verbal altercation with an individual this morning which caused him to get mad and anxious and subsequently had a panic attack. On arrival, he is feeling much better. He is tearful and requesting resources on local mental health services in the area Review of Systems Review of Systems Fourteen body systems of review of systems have been reviewed. See HPI for pertinent positives and negative responses, other goldman all other systems are negative, non-pertinent or non-contributory Allergies Allergies Allergies Coded Allergies Type Severity Reaction Last Updated Verified ketorolac Allergy Intermediate 12/29/18 Yes Physical Exam Physical Exam Constitutional: Well developed, well nourished, no acute distress, non-toxic appearance. HENT: Normocephalic, atraumatic, bilateral external ears normal, oropharynx moist, no oral exudates, nose normal. Eyes: PERRLA, EOMI, conjunctiva normal, no discharge. Neck: Normal range of motion, no tenderness, supple, no stridor. Cardiovascular: Heart rate regular, sinus rhythm, no murmurs rubs or gallops Lungs & Thorax: Bilateral breath sounds clear to auscultation Abdomen: Bowel sounds normal, soft, no tenderness, no masses, no pulsatile masses. Nonsurgical abdomen, no peritoneal signs Skin: Warm, dry, no erythema, no rash. Back: No tenderness, no CVA tenderness. Extremities: No tenderness, no cyanosis, no clubbing, ROM intact, no edema. Neurologic: Alert and oriented X 3, grossly normal motor & sensory function, no focal deficits noted. Psychologic: Tearful affect, depressed mood Current Patient Data Vital Signs Vital Signs Date Time Temp Pulse Resp B/P (MAP) Pulse Ox O2 Delivery O2 Flow Rate FiO2 08/18/20 09:18 97.7 62 18 93/53 (66) 97 Room Air EKG EKG [] Radiology/Procedures Radiology/Procedures [] Heart Score C/O Chest Pain: No Risk Factors: Risk Factors: DM, Current or recent (<one month) smoker, HTN, HLP, family history of CAD, obesity. Risk Scores: Risk Factors: DM, Current or recent (<one month) smoker, HTN, HLP, family history of CAD, obesity. Course & Med Decision Making Course & Med Decision Making Discussed with the patient all findings, joint decision to defer any diagnostic testing given that patient is relatively asymptomatic on my evaluation. I discussed most likely diagnosis of anxiety, depression and panic attacks that are poorly treated in outpatient setting. I educated patient extensively on local mental health resources and discussed role of presenting to local [facility] today to get plugged into these. Also discussed utilizing hydroxyzine short-term for severe anxiety, patient took x1 dose while in ER and tolerated this well requesting a short-term prescription to go home on. Ultimately, he acknowledges that he he needs to start therapy again and would like to start Zoloft with primary care physician in outpatient setting and so, I stressed need for close outpatient follow-up to review today's ER visit. Strict return precautions were also discussed at length with good understanding by patient. Patient voiced understanding and agreement with the plan. Patient knows to come back for repeat evaluation if concerning signs or symptoms present prior to outpatient follow-up. Hemodynamically stable, ambulatory and well-appearing at time of disposition. Dragon Disclaimer Dragon Disclaimer This electronic medical record was generated, in whole or in part, using a voice recognition dictation system. Departure Departure: Impression: Primary Impression: Anxiety and depression Disposition: HOME / SELF CARE / HOMELESS Condition: IMPROVED Referrals: PCPBLANCA (PCP) Patient Instructions: Anxiety and Panic Attacks Additional Instructions: As discussed prior to ER departure, please contact the [facility] whose contact information can be found below immediately after ER departure. They will be able to assist you in establishing care and providing a wealth of mental health services to you which as discussed, would greatly benefit you. You have been prescribed a medication today that is not intended for long-term use but as discussed, will serve more as a Band-Aid in the interim. You would benefit from restarting Zoloft medication and getting back into therapy which the [facility] will be able to assist with. If any concerning signs or symptoms present prior to outpatient follow-up, please do not hesitate to come back for repeat evaluation. It was a pleasure to take care of you and I wish you the best going forward [facility] Center information Address: [address] [place], [place] [address] [address] Hours: Sunday 8AM7PM Sunday 8AM7PM Sunday 8AM7PM 8AM7PM Sunday 8AM5PM Sunday Closed Sunday Closed Scripts Hydroxyzine Hcl (HYDROXYZINE HCL) 25 Mg Tablet 1 TAB PO TID PRN for ANXIETY / AGITATION, #30 TAB Prov: LIANNE SHETTY DO 08/18/20 LIANNE SHETTY DO Aug 18, 2020 09:43
[2020-08-18] MEDS ORDERED: hydrOXYzine HCL 25 MG TABLET PO PRN (10:15)
[2020-08-18] MEDS ORDERED: HYDR25TA PO (10:44)
[2020-08-18 10:45] VITALS: BP 106/61
== END 2020-08-18 11:03 | disposition home or self-care (01) ==
LOC: ER 09:11
DX: F41.9 Anxiety disorder, unspecified (principal); F32.9 Major depressive disorder, single episode, unspecified; F43.10 Post-traumatic stress disorder, unspecified; J45.909 Unspecified asthma, uncomplicated; Z88.8 Allergy status to other drugs, medicaments and biological substances
CPT/HCPCS: 99283